=== PATIENT | male | born 1960 | race Caucasian/White ===

== ENCOUNTER 2017-04-19 07:12 | Inpatient (IN) | payer OTHER ==
[2017-04-19] VITALS (22 sets, daily range): BP systolic 87–160; BP diastolic 51–103; PULSE 54–70; RESP 15–20; TEMP 97.7–98.2; O2SAT 97–99
[~2017-04-19] VITALS: Ht 167.6 cm; Wt 97.5 kg
[2017-04-19] MEDS ORDERED: NITROGLYCERIN 2% OINT 1 GM PACKET TOP ONE (07:30)
[2017-04-19] MEDS ORDERED: SODIUM CHLORIDE 0.9% FLUSH 10 ML FLUSH IVF PRN (07:30)
[2017-04-19] MEDS ORDERED: ASPIRIN 81 MG CHEW TAB PO ONE (07:30)
--- NOTE | 2017-04-19 07:34 | PD ---
HPI Chief Complaint: Chest Pain Time Seen by Provider: 07:22 Travel History International Travel<30 days: No Contact w/Intl Traveler<30days: No Traveled to known affect area: No History of Present Illness HPI 56-year-old male with history of perceived hypertension, tobacco use, presents today with points of intermittent chest pain since yesterday. The patient and his family state that he's had intermittent chest pain and shortness of breath since yesterday. There is no exertional component. The patient states it's worse when he lies flat. The patient has no previous cardiac history. He does have family history worse father had coronary artery disease however he lived to be in his 90s. PFSH Past Medical History Cardiovascular Problems: Yes (HTN) Social History Tobacco Use: Yes Allergies-Medications (Allergen,Severity, Reaction): Coded Allergies: No Known Allergies (Unverified , 04/19/17) Reported Meds & Prescriptions Reported Meds & Active Scripts Active No Active Prescriptions or Reported Medications Review of Systems Except as stated in HPI: all other systems reviewed are Neg General / Constitutional: No: Fever, Chills HENT: No: Headaches, Lightheadedness Cardiovascular: Positive: Chest Pain or Discomfort, No: Palpitations, Irregular Rhythm Respiratory: Positive: Shortness of Breath, No: Cough Gastrointestinal: No: Nausea, Vomiting, Abdominal Pain Musculoskeletal: Positive: Pain (chest pain radiates from his left side of his chest to his back.), No: Weakness Neurologic: No: Weakness, Dizziness, Headache Physical Exam Narrative GENERAL: Well-developed well-nourished male in no acute respiratory distress. SKIN: Focused skin assessment warm/dry. HEAD: Atraumatic. Normocephalic. EYES: Pupils equal and round. No scleral icterus. No injection or drainage. ENT: No nasal bleeding or discharge. Mucous membranes pink and moist. NECK: Trachea midline. No JVD. Supple. CARDIOVASCULAR: Regular rate and rhythm. No murmur appreciated. RESPIRATORY: No accessory muscle use. Clear to auscultation. Breath sounds equal bilaterally. No Rales or rhonchi. GASTROINTESTINAL: Abdomen soft, non-tender, nondistended. Hepatic and splenic margins not palpable. MUSCULOSKELETAL: No obvious deformities. No clubbing. No cyanosis. No edema. NEUROLOGICAL: Awake and alert. No obvious cranial nerve deficits. Motor grossly within normal limits. Normal speech. Data Data Last Documented VS Vital Signs Date Time Temp Pulse Resp B/P (MAP) Pulse Ox O2 Delivery O2 Flow Rate FiO2 04/19/17 07:34 65 115/69 (84) 04/19/17 07:20 97.7 20 98 04/19/17 07:15 Nasal Cannula 2.00 Orders Orders Basic Metabolic Panel (Bmp) (04/19/17 07:29) Ckmb (Isoenzyme) Profile (04/19/17 07:29) Complete Blood Count With Diff (04/19/17:29) Magnesium (Mg) (04/19/17 07:29) Prothrombin Time / Inr (Pt) (04/19/17 07:29) Act Partial Throm Time (Ptt) (04/19/17 07:29) Troponin I (04/19/17 07:29) Chest, Single Ap (04/19/17 07:29) Ecg Monitoring (04/19/17 07:29) Bilateral Bp Monitoring (04/19/17 07:29) Iv Access Insert/Monitor (04/19/17 07:29) Oximetry (04/19/17 07:29) Oxygen Administration (04/19/17 07:29) Aspirin Chew (Aspirin Chew) (04/19/17 07:30) Nitroglycerin 2% Oint (Nitroglycerin 2% (04/19/17 07:30) Sodium Chloride 0.9% Flush (Ns Flush) (04/19/17 07:30) B-Type Natriuretic Peptide (04/19/17 07:34) CKMB (04/19/17 07:30) CKMB% (04/19/17 07:30) Cta Chest W Iv Contrast W 3d (04/19/17 08:24) Iohexol 350 Inj (Omnipaque 350 Inj) (04/19/17 09:16) Admit Order (Ed Use Only) (04/19/17 09:49) Labs Laboratory Tests Test 04/19/17 07:30 White Blood Count 13.1 TH/MM3 Red Blood Count 5.05 MIL/MM3 Hemoglobin 15.7 GM/DL Hematocrit 46.7 % Mean Corpuscular Volume 92.4 FL Mean Corpuscular Hemoglobin 31.1 PG Mean Corpuscular Hemoglobin Concent 33.6 % Red Cell Distribution Width 13.1 % Platelet Count 323 TH/MM3 Mean Platelet Volume 9.1 FL Neutrophils (%) (Auto) 83.0 % Lymphocytes (%) (Auto) 12.2 % Monocytes (%) (Auto) 3.2 % Eosinophils (%) (Auto) 1.1 % Basophils (%) (Auto) 0.5 % Neutrophils # (Auto) 10.8 TH/MM3 Lymphocytes # (Auto) 1.6 TH/MM3 Monocytes # (Auto) 0.4 TH/MM3 Eosinophils # (Auto) 0.1 TH/MM3 Basophils # (Auto) 0.1 TH/MM3 CBC Comment DIFF FINAL Differential Comment Prothrombin Time 11.2 SEC Prothromb Time International Ratio 1.0 RATIO Activated Partial Thromboplast Time 32.4 SEC Blood Urea Nitrogen 15 MG/DL Creatinine 0.90 MG/DL Random Glucose 118 MG/DL Calcium Level 8.7 MG/DL Magnesium Level 2.1 MG/DL Sodium Level 138 MEQ/L Potassium Level 4.2 MEQ/L Chloride Level 106 MEQ/L Carbon Dioxide Level 24.6 MEQ/L Anion Gap 7 MEQ/L Estimat Glomerular Filtration Rate 87 ML/MIN Total Creatine Kinase 188 U/L Creatine Kinase MB 1.5 NG/ML Troponin I LESS THAN 0.02 NG/ML B-Type Natriuretic Peptide 20 PG/ML MDM Medical Decision Making Medical Screen Exam Complete: Yes Emergency Medical Condition: Yes Differential Diagnosis Musculoskeletal pain versus ACS versus pneumonia versus CHF Narrative Course 56-year-old male with a history of perceived hypertension, tobacco use, who presents today with complaints of intermittent chest pain times several days. The patient's EKG and cardiac enzymes are normal without acute findings. Patient had pain that radiated to his back and there is questionable widening of his mediastinum. CT angiogram of the thoracic aorta was also ordered which shows no evidence of acute findings. The patient be placed in the chest pain center. I discussed with both the patient his son and of the protocol and they're amenable. Diagnosis Primary Impression: Chest pain Additional Impressions: reported hypertension without clinical diagnosis Tobacco use Admitting Information Admitting Physician Requests: Observation Scripts No Active Prescriptions or Reported Meds Haroldo Ennis MD Apr 19, 2017 07:34
[2017-04-19 07:57] LABS: AUTOMATED NEUTROPHIL # 10.8 TH/MM3 (1.8-7.7); BASOPHIL # 0.1 TH/MM3 (0-0.2); BASOPHIL % 0.5 % (0.0-2.0); EOSINOPHIL # 0.1 TH/MM3 (0-0.4); EOSINOPHIL % 1.1 % (0.0-4.0); HEMATOCRIT 46.7 % (39.0-51.0); HEMO FLAGS DIFF FINAL; LYMPH % 12.2 % (9.0-44.0); LYMPHOCYTE # 1.6 TH/MM3 (1.0-4.8); MEAN CELL VOLUME 92.4 FL (80.0-100.0); MEAN CORPUSCULAR HEMOGLOBIN 31.1 PG (27.0-34.0); MEAN CORPUSCULAR HGB CONC 33.6 % (32.0-36.0); MONO % 3.2 % (0.0-8.0); PLATELET COUNT 323 TH/MM3 (150-450); RED BLOOD COUNT 5.05 MIL/MM3 (4.50-5.90); RED CELL DISTRIBUTION WIDTH 13.1 % (11.6-17.2); WHITE BLOOD COUNT 13.1 TH/MM3 (4.0-11.0)
[2017-04-19 08:10] LABS: APTT (PATIENT) 32.4 SEC (24.3-30.1); PROTHROMBIN TIME - PATIENT 11.2 SEC (9.8-11.6)
[2017-04-19 08:14] LABS: ANION GAP 7 MEQ/L (5-15); BICARBONATE 24.6 MEQ/L (21.0-32.0); BLOOD UREA NITROGEN 15 MG/DL (7-18); CHLORIDE 106 MEQ/L (98-107); CREATINE KINASE 188 U/L (39-308); GLOMERULAR FILTRATION RATE 87 ML/MIN (>89); MAGNESIUM 2.1 MG/DL (1.5-2.5); POTASSIUM 4.2 MEQ/L (3.5-5.1); SODIUM (NA) 138 MEQ/L (136-145)
[2017-04-19 08:26] LABS: CKMB 1.5 NG/ML (0.5-3.6)
--- NOTE | 2017-04-19 08:33 | RADRPT ---
EXAM DATE/TIME: 04/19/2017 08:08 [facility] COMPARISON: No previous studies available for comparison. INDICATIONS : Chest Pain MEDICAL HISTORY : None. SURGICAL HISTORY : ENCOUNTER: Initial ACUITY: 1 day PAIN SCORE: 6/10 LOCATION: Bilateral chest FINDINGS: A single view of the chest demonstrates the lungs to be symmetrically aerated without evidence of mas s, infiltrate or effusion. The heart size is mildly prominent.. Osseous structures are intact. CONCLUSION: No acute disease. Compensated cardiomegaly. Franklin Munoz MD on April 19, 2017 at 8:31 Board Certified Radiologist. This report was verified electronically.
[2017-04-19] MEDS ORDERED: IOHEXOL 350 MG/ML 10 ML VIAL (for RAD DIAG) IVCONTRAST ONE (09:16)
--- NOTE | 2017-04-19 09:37 | RADRPT ---
EXAM DATE/TIME: 04/19/2017 08:59 [facility] COMPARISON: No previous studies available for comparison. INDICATIONS : Substernal chest pain; evaluate for aortic dissection. IV CONTRAST: 84 cc Omnipaque 350 (iohexol) IV RADIATION DOSE: 16.73 CTDIvol (mGy) MEDICAL HISTORY : Hypertension. SURGICAL HISTORY : None. ENCOUNTER: Initial ACUITY: 1 day PAIN SCALE: 5/10 LOCATION: chest TECHNIQUE: Volumetric scanning of the chest was performed using a pulmonary embolism protocol MIP images were re constructed. Using automated exposure control and adjustment of the mA and/or kV according to patien t size, radiation dose was kept as low as reasonably achievable to obtain optimal diagnostic quality images. DICOM format image data is available electronically for review and comparison. Follow-up recommendations for detected pulmonary nodules are based at a minimum on nodule size and pa tient risk factors according to Fleischner Society Guidelines. FINDINGS: PULMONARY ARTERIES: No filling defects are seen in the pulmonary arteries through the segmental level. AORTA: There mild atherosclerotic changes in the thoracic aorta. There is no evidence of aneurysmal dilatati on or aortic dissection. There is a three-vessel arch. LUNGS: There is no consolidation or pneumothorax . No concerning pulmonary nodule is visualized. PLEURAE: There is no pleural thickening or pleural effusion. MEDIASTINUM: There is good visualization of the great vessels of the middle mediastinum. No evidence of mediastin al or hilar adenopathy/mass. MUSCULOSKELETAL: Within normal limits for patient age. MISCELLANEOUS: The visualized upper abdominal organs demonstrate no acute abnormality. CONCLUSION: 1. No evidence of aortic dissection or aneurysmal dilatation. 2. Mild atherosclerotic changes throughout the thoracic aorta. 3. No acute intrathoracic disease. Franklin Munoz MD on April 19, 2017 at 9:32 Board Certified Radiologist. This report was verified electronically.
[2017-04-19] MEDS ORDERED: SODIUM CHLOR 0.9% 1000 ML INJ 1,000 ML IV ONE (10:42)
[2017-04-19] MEDS ORDERED: SODIUM CHLORIDE 0.9% FLUSH 5 ML FLUSH IVF PRN (10:45)
[2017-04-19] MEDS ORDERED: ACETAMINOPHEN 500 MG CPLT PO PRN (10:45)
[2017-04-19] MEDS ORDERED: ONDANSETRON HCL 4 MG/2 ML VIAL IV PUSH PRN (10:45)
[2017-04-19] MEDS ORDERED: ACETAMINOPHEN/HYDROcodone 325 MG/7.5 MG TAB PO PRN (10:45)
[2017-04-19 11:44] LABS: CREATINE KINASE 155 U/L (39-308)
[2017-04-19 12:08] LABS: CKMB 2.1 NG/ML (0.5-3.6)
--- NOTE | 2017-04-19 12:27 | HHI.HP ---
HPI Primary Care Physician Unknown Chief Complaint Chest pain History of Present Illness This is a 56-year-old [place]-speaking male that presents to ED via private vehicle with a clinical chest discomfort. Translation through the [facility] system was offered the patient declined and is requesting that his son translate for him. He states that he was awoken at 2:00 in the morning with a central chest tightness that radiated into his left arm with some left arm tingling. States it was very severe. He was short of breath with it. Lasted 1 hour. No nausea or diaphoresis. Nothing seemed to worsen or improve when he had it. Thin short time later reoccurred also lasting hour. Similar characteristics. Then a third tablet when it reoccurred he also checked his blood pressure and found to be 187/107 which concerned her more and at that point decided to come to ED for evaluation. Third episode also lasted about an hour. Also shortness of breath. Rating into left arm with some left arm numbness and tingling. No nausea or diaphoresis. Denies any recent illness. Denies fevers or chills. Denies abdominal pain. Denies back pain. Cannot recall prior cardiac workup. States he has history of hypertension but was never prescribed medication for. His has hypertension and he took 100 mg of atenolol from her this morning. Currently free of chest discomfort. Review of Systems General: Patient denies fevers, chills recent, and recent travel HEENT: Patient denies headache, sore throat, difficulty swallowing. Cardiovascular: Has the chest discomfort as mentioned above. Denies sensation of heart beating rapidly or irregularly. No syncope. Denies diaphoresis. Respiratory: He was short of breath. Denies inspirational chest discomfort. Denies coughing wheezing or hemoptysis. GI: Patient denies nausea, vomiting, diarrhea, abdominal pain, bloody stools. Musculoskeletal: Patient denies joint pain or edema. Denies calf pain or edema. Neurovascular: Patient denies numbness, tingling, weakness in extremities. Denies headache. Endocrine: Denies polyuria and polydipsia. Hematologic: Denies easy bruising. Skin: Denies rash or itching. Past Family Social History Allergies: Coded Allergies: No Known Allergies (Unverified , 04/19/17) Past Surgical History Noncontributory. Reported Medications Reported Meds & Active Scripts Active No Active Prescriptions or Reported Medications Active Ordered Medications Current Medications Medications (Trade) Dose Ordered Sig/William Route Start Time Stop Time Status Last Admin (NS Flush) 2 ml UNSCH PRN IVF 04/19/17 10:45 (NS Flush) 2 ml BID IVF 04/19/17 21:00 (Tylenol) 500 mg Q4H PRN PO 04/19/17 10:45 ([place] 7.5-325 Mg) 1 tab Q4H PRN PO 04/19/17 10:45 (Zofran Inj) 4 mg Q6H PRN IV PUSH 04/19/17 10:45 (Aspirin) 325 mg DAILY PO 04/20/17 09:00 Family History States that there is late onset CAD. Father diagnosed with CAD age 82 and lived to be 89. Social History Patient has smoked one pack of cigarettes daily for 40 years. Has on average a couple beers a month. Denies illicit drugs. He has a [employer] company. Physical Exam Vital Signs Vital Signs Date Time Temp Pulse Resp B/P (MAP) Pulse Ox O2 Delivery O2 Flow Rate FiO2 04/19/17 11:00 54 18 95/59 (71) 99 Nasal Cannula 2.00 04/19/17 10:45 58 87/51 (63) 04/19/17 10:30 55 90/54 (66) 04/19/17 10:00 57 18 105/55 (72) 97 Nasal Cannula 2.00 04/19/17 07:34 65 115/69 (84) 04/19/17 07:20 97.7 66 20 126/80 (95) 98 04/19/17 07:15 98 Nasal Cannula 2.00 04/19/17 07:15 98 Nasal Cannula 2.00 04/19/17 07:13 97.7 70 15 156/93 (114) 98 04/19/17 07:13 64 160/103 (122) Physical Exam GENERAL: This is a well-nourished, well-developed patient, in no apparent distress. Patient speaks in clear complete sentences. Patient is pleasant. His is at the bedside. His son initially translated over the phone at the request of the patient but has since arrived in the ED room. HEENT: Head is atraumatic and normocephalic. Neck is supple without lymphadenopathy and trachea is midline. No JVD or carotid bruits. CARDIOVASCULAR: Regular rate and rhythm without murmurs, gallops, or rubs. RESPIRATORY: Clear to auscultation. Breath sounds equal bilaterally. No wheezes , rales, or rhonchi. Chest wall is nontender. No use of accessory muscles. GASTROINTESTINAL: Abdomen is nontender, nondistended. Abdomen soft. No obvious pulsatile mass or bruit. No CVA tenderness. Strong femoral pulses bilaterally. Normal bowel sounds in all quadrants. MUSCULOSKELETAL: Patient is moving upper and lower extremities freely. No calf tenderness or edema, no Homans sign. Strong pulses in upper and lower extremities. NEUROLOGICAL: Patient is alert and oriented. Cranial nerves 2-12 are grossly intact. No focal deficits and speech is clear. SKIN: No rash and turgor is normal. Laboratory Laboratory Tests Test 04/19/17 07:30 04/19/17 11:00 White Blood Count 13.1 Red Blood Count 5.05 Hemoglobin 15.7 Hematocrit 46.7 Mean Corpuscular Volume 92.4 Mean Corpuscular Hemoglobin 31.1 Mean Corpuscular Hemoglobin Concent 33.6 Red Cell Distribution Width 13.1 Platelet Count 323 Mean Platelet Volume 9.1 Neutrophils (%) (Auto) 83.0 Lymphocytes (%) (Auto) 12.2 Monocytes (%) (Auto) 3.2 Eosinophils (%) (Auto) 1.1 Basophils (%) (Auto) 0.5 Neutrophils # (Auto) 10.8 Lymphocytes # (Auto) 1.6 Monocytes # (Auto) 0.4 Eosinophils # (Auto) 0.1 Basophils # (Auto) 0.1 CBC Comment DIFF FINAL Differential Comment Prothrombin Time 11.2 Prothromb Time International Ratio 1.0 Activated Partial Thromboplast Time 32.4 Blood Urea Nitrogen 15 Creatinine 0.90 Random Glucose 118 Calcium Level 8.7 Magnesium Level 2.1 Sodium Level 138 Potassium Level 4.2 Chloride Level 106 Carbon Dioxide Level 24.6 Anion Gap 7 Estimat Glomerular Filtration Rate 87 Total Creatine Kinase 188 155 Creatine Kinase MB 1.5 2.1 Troponin I LESS THAN 0.02 0.14 B-Type Natriuretic Peptide 20 Result Diagram: 04/19/1772904/19/17729 Imaging Last 48 hours Impressions Chest/Thorax CTA 04/19/17823 Signed Impressions: Service Date/Time: Wednesday, April 19, 2017 08:59 - CONCLUSION: 1. No evidence of aortic dissection or aneurysmal dilatation. 2. Mild atherosclerotic changes throughout the thoracic aorta. 3. No acute intrathoracic disease. Franklin Munoz MD Chest X-Ray 04/19/17 0729 Signed Impressions: Service Date/Time: Friday, April 19, 2017 08:08 - CONCLUSION: No acute disease. Compensated cardiomegaly. Franklin Munoz MD Course First 2 EKGs have sinus rhythm without significant ST segment depressions or elevations. Caprini VTE Risk Assessment Caprini VTE Risk Assessment: No/Low Risk (score <= 1) Caprini Risk Assessment Model Point Value = 1 Point Value = 2 Point Value = 3 Point Value = 5 Age 41-60 Minor surgery BMI > 25 kg/m2 Swollen legs Varicose veins or History of unexplained or recurrent spontaneous Oral contraceptives or hormone replacement Sepsis (< 1 month) Serious lung disease, including pneumonia (< 1 month) Abnormal pulmonary function Acute myocardial infarction Congestive heart failure (< 1 month) History of inflammatory bowel disease Medical patient at bed rest Age 61-74 Arthroscopic surgery Major open surgery (> 45 min) Laparoscopic surgery (> 45 min) Malignancy Confined to bed (> 72 hours) Immobilizing plaster cast Central venous access Age >= 75 History of VTE Family history of VTE Factor V Leiden Prothrombin [id number] Lupus anticoagulant Anticardiolipin antibodies Elevated serum homocysteine Heparin-induced thrombocytopenia Other congenital or acquired thrombophilia Stroke (< 1 month) Elective arthroplasty Hip, pelvis, or leg fracture Acute spinal cord injury (< 1 month) Prophylaxis Regimen Total Risk Factor Score Risk Level Prophylaxis Regimen 0-1 Low Early ambulation 2 Moderate Order ONE of the following: *Sequential Compression Device (SCD) *Heparin 5000 units SQ BID 3-4 Higher Order ONE of the following medications: *Heparin 5000 units SQ TID *Enoxaparin/Lovenox 40 mg SQ daily (WT < 150 kg, CrCl > 30 mL/min) *Enoxaparin/Lovenox 30 mg SQ daily (WT < 150 kg, CrCl > 10-29 mL/min) *Enoxaparin/Lovenox 30 mg SQ BID (WT < 150 kg, CrCl > 30 mL/min) AND/OR *Sequential Compression Device (SCD) 5 or more Highest Order ONE of the following medications: *Heparin 5000 units SQ TID (Preferred with Epidurals) *Enoxaparin/Lovenox 40 mg SQ daily (WT < 150 kg, CrCl > 30 mL/min) *Enoxaparin/Lovenox 30 mg SQ daily (WT < 150 kg, CrCl > 10-29 mL/min) *Enoxaparin/Lovenox 30 mg SQ BID (WT < 150 kg, CrCl > 30 mL/min) AND *Sequential Compression Device (SCD) Assessment and Plan Assessment and Plan * Non-STEMI: Patient's second troponin elevated to 0.14. Patient was seen by Dr. Rodriguez of cardiology and the chest pain center. Have also discussed this patient with Dr. Jayesh Macedo whom his dry paste supervisor control systems eng. He will evaluate the patient shortly. Requesting heparin drip. Will start statin. Patient had Nitrol ointment on his chest during examination and was found to be hypotensive. This was removed. IV hydration has begun and blood pressure has improved to 102 systolic. We'll hold putting ointment on his chest at this time until blood pressure improved some more. Also secondary to this we'll hold beta rod but likely these both will be restarted as his blood pressure returns to normal. Further cardiac evaluation to be determined by Dr. Jayesh Macedo. Patient will be admitted to [facility] as well. * Hypertension: Patient states he has been hypertensive for some time but never prescribed medication. He or his 's atenolol and had Nitrol ointment and became hypotensive in the ED. He likely will need medication started once his blood pressure improves. * Tobacco abuse: Patient has been counseled on the importance of smoking cessation. Patient is agreeable to this plan. Gildardo Hairston Apr 19, 2017 12:27
[2017-04-19] MEDS ORDERED: SODIUM CHLOR 0.9% 1000 ML INJ 1,000 ML IV SCH (12:30)
[2017-04-19] MEDS ORDERED: HEPARIN SODIUM - IV 10,000 UNITS/10 ML VIAL IV ONE (12:45)
[2017-04-19] MEDS ORDERED: HEPARIN-D5W 25,000 U/250 ML 250 ML IV ONE (12:45)
[2017-04-19] MEDS: ATORVASTATIN 20 MG TAB PO SCH (13:27)
--- NOTE | 2017-04-19 14:27 | ECHRPT ---
Indication: Chest Pain CONCLUSIONS Normal left ventricular size. Wall thickness is normal. No regional wall motion abnormalities are present. Trace mitral valve regurgitation. Aortic valve sclerosis is present. There is trace tricuspid valve regurgitation. The estimated pulmonary arterial pressure is 34 mmHg. The pulmonary valve is not well visualized. BP: / HR: Rhythm: Sinus MEASUREMENTS (Male / Female) Normal Values Technical Quality:Good 2D ECHO LV Diastolic Diameter PLAX 3.8 cm 4.2 - 5.9 / 3.9 - 5.3 cm LV Systolic Diameter PLAX 2.6 cm IVS Diastolic Thickness 1.1 cm 0.6 - 1.0 / 0.6 - 0.9 cm LVPW Diastolic Thickness 1.1 cm 0.6 - 1.0 / 0.6 - 0.9 cm LV Relative Wall Thickness 0.6 RV Internal Dim ED PLAX 2.6 cm LVOT Diameter 1.9 cm LA Systolic Diameter LX 3.3 cm 3.0 - 4.0 / 2.7 - 3.8 cm LV Ejection Fraction MOD 4C 60.5 % LV Ejection Fraction 4C AL 61.4 % M-MODE Aortic Root Diameter MM 2.9 cm LA Systolic Diameter MM 3.5 cm LA Ao Ratio MM 1.2 AV Cusp Separation MM 1.9 cm DOPPLER AV Peak Velocity 163.0 cm/s AV Peak Gradient 10.6 mmHg LVOT Peak Velocity 116.0 cm/s LVOT Peak Gradient 5.4 mmHg AV Area Cont Eq pk 2.0 cm MV Area PHT 3.4 cm Mitral E Point Velocity 84.4 cm/s Mitral A Point Velocity 66.6 cm/s Mitral E to A Ratio 1.3 LV E' Lateral Velocity 11.0 cm/s Mitral E to LV E' Lateral Ratio 7.7 LV E' Septal Velocity 8.5 cm/s Mitral E to LV E' Septal Ratio 10.0 TR Peak Velocity 248.0 cm/s TR Peak Gradient 24.6 mmHg Right Atrial Pressure 10.0 mmHg Pulmonary Artery Systolic Pressu 34.6 mmHg Right Ventricular Systolic Press 34.6 mmHg PV Peak Velocity 97.7 cm/s PV Peak Gradient 3.8 mmHg FINDINGS LEFT VENTRICLE The left ventricular systolic function is normal with an estimated ejection fraction in the range of 60-65%. Normal left ventricular size. Wall thickness is normal. No regional wall motion abnormalities are present. RIGHT VENTRICLE Normal right ventricular size and systolic function. LEFT ATRIUM The left atrial size is normal. RIGHT ATRIUM The right atrial size is normal. ATRIAL SEPTUM Normal atrial septal thickness without atrial level shunting by limited color doppler interrogation. AORTA The aortic root and proximal ascending aorta are normal in size on limited imaging. MITRAL VALVE Trace mitral valve regurgitation. Structurally normal mitral valve. AORTIC VALVE Trileaflet aortic valve. No aortic valve stenosis or regurgitation. Aortic valve sclerosis is presen t. TRICUSPID VALVE Structurally normal tricuspid valve. There is trace tricuspid valve regurgitation. The estimated pulmonary arterial pressure is 34 mmHg. PULMONARY VALVE The pulmonary valve is not well visualized. No pulmonary valve regurgitation or stenosis. VESSELS The inferior vena cava is normal in size. PERICARDIUM No pericardial effusion. Jayesh Macedo MD (Electronically Signed) Final Date:19 April 2017 14:25
[2017-04-19 14:48] LABS: CREATINE KINASE 141 U/L (39-308)
--- NOTE | 2017-04-19 15:02 | PD.CONS ---
HPI Consult Requested By Reason for Consult Acute coronary syndrome Primary Care Physician Unknown History of Present Illness The patient is a pleasant 56-year-old male who I'm seeing for acute coronary syndrome. 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 The patient has been active and has absolutely no cardiac history. At approximately 3 AM he was awoken with severe substernal pressure radiating to his left arm associated with shortness of breath. This lasted for an hour and resolved. It occurred 2 more times. At one point he took his blood pressure which was high and took 100 mg of atenolol from his . The maximum duration of the chest pain was one hour. He is symptom-free now. EKG in the emergency room shown sinus bradycardia and sinus rhythm with no acute changes. Review of Systems Consitutional: DENIES: Fatigue Eyes: DENIES: Amaurosis Fugax Respiratory: COMPLAINS OF: Shortness of breath, DENIES: Cough, Snoring, Wheezing Cardiovascular: COMPLAINS OF: Chest pain Neurologic: DENIES: Tingling or numbness, Memory problems, Poor Balance Musculoskeletal: DENIES: Muscle pain Psychiatric: DENIES: Anxiety, Depression Past Family Social History Allergies: Coded Allergies: No Known Allergies (Unverified , 04/19/17) Past Medical History Hypertension Osteoarthritis Reported Medications Reported Meds & Active Scripts Active No Active Prescriptions or Reported Medications Active Ordered Medications Current Medications Medications (Trade) Dose Ordered Sig/William Route Start Time Stop Time Status Last Admin (NS Flush) 2 ml UNSCH PRN IVF 04/19/17 10:45 (NS Flush) 2 ml BID IVF 04/19/17 21:00 (Tylenol) 500 mg Q4H PRN PO 04/19/17 10:45 ([place] 7.5-325 Mg) 1 tab Q4H PRN PO 04/19/17 10:45 (Zofran Inj) 4 mg Q6H PRN IV PUSH 04/19/17 10:45 (Aspirin) 325 mg DAILY PO 04/20/17 09:00 Sodium Chloride 1,000 ml @ 125 mls/hr Q8H IV 04/19/17 12:30 04/19/17 20:29 04/19/17 13:49 (Lipitor) 20 mg DAILY PO 04/19/17 12:30 04/19/17 13:27 Heparin Sodium/ Dextrose 250 ml @ 10 mls/hr TITRATE ONCE IV 04/19/17 12:45 04/20/17 13:44 04/19/17 13:43 Family History Remarkable for a brother with heart disease at 58 Social History The patient is . He is originally [place] and speaks predominantly Monegasque. His son is translating for him and his is in attendance. He does smoke and occasionally drinks. Physical Exam Vital Signs Vital Signs Date Time Temp Pulse Resp B/P (MAP) Pulse Ox O2 Delivery O2 Flow Rate FiO2 04/19/17 13:00 55 18 113/78 (90) 99 Nasal Cannula 2.00 04/19/17 12:30 58 100/59 (73) 04/19/17 12:00 60 20 102/63 (76) 99 Nasal Cannula 2.00 04/19/17 11:30 58 101/56 (71) 04/19/17 11:00 54 18 95/59 (71) 99 Nasal Cannula 2.00 04/19/17 10:45 58 87/51 (63) 04/19/17 10:30 55 90/54 (66) 04/19/17 10:00 57 18 105/55 (72) 97 Nasal Cannula 2.00 04/19/17 07:34 65 115/69 (84) 04/19/17 07:20 97.7 66 20 126/80 (95) 98 04/19/17 07:15 98 Nasal Cannula 2.00 04/19/17 07:15 98 Nasal Cannula 2.00 04/19/17 07:13 97.7 70 15 156/93 (114) 98 04/19/17 07:13 64 160/103 (122) Physical Exam CONSTITUTIONAL: A overweight,well-developed, well-nourished patient in no apparent distress. EYES: Conjunctiva normal. Sclera nonicteric. Eyelids normal. No xanthelasma. HEENT: Oral mucosa normal without pallor or cyanosis. NECK: JVD less than or equal to 5 cm of water. RESPIRATORY: Breathing is unlabored without accessory muscle use. Normal breath sounds. No wheezes, rales or rubs present. CARDIOVASCULAR: Normal point of maximal impulse. No cardiac thrill present. Regular rate and rhythm. No murmurs, gallops, rubs or clicks present. PULSES: Carotid arteries: Normal pulses bilaterally without bruits. Palmar arteries: Radial pulses 2+ bilaterally Abdominal aorta: Aortic pulses normal without bruits or enlargement. Femoral arteries: 2+ bilaterally. No bruits present. Pedal pulses: 1-2+ bilaterally PERIPHERAL CIRCULATION: No cyanosis, clubbing, edema or varicosities present. GASTROINTESTINAL: Normal bowel sounds. Nontender without rigidity or guarding. No masses present. No hepatomegaly. Liver is nontender to palpation and spleen is nonpalpable. Digital rectal exam-not indicated for cardiovascular exam. MUSCULOSKELETAL: No kyphosis or scoliosis present. The patient is not ambulated. Able to undergo rehabilitation. SKIN: Skin turgor is normal. No rashes. NEUROLOGIC: Grossly oriented to person, place and time. Normal mood and appropriate affect. Laboratory Laboratory Tests Test 04/19/17 07:30 04/19/17 11:00 04/19/17 14:00 White Blood Count 13.1 Red Blood Count 5.05 Hemoglobin 15.7 Hematocrit 46.7 Mean Corpuscular Volume 92.4 Mean Corpuscular Hemoglobin 31.1 Mean Corpuscular Hemoglobin Concent 33.6 Red Cell Distribution Width 13.1 Platelet Count 323 Mean Platelet Volume 9.1 Neutrophils (%) (Auto) 83.0 Lymphocytes (%) (Auto) 12.2 Monocytes (%) (Auto) 3.2 Eosinophils (%) (Auto) 1.1 Basophils (%) (Auto) 0.5 Neutrophils # (Auto) 10.8 Lymphocytes # (Auto) 1.6 Monocytes # (Auto) 0.4 Eosinophils # (Auto) 0.1 Basophils # (Auto) 0.1 CBC Comment DIFF FINAL Differential Comment Prothrombin Time 11.2 Prothromb Time International Ratio 1.0 Activated Partial Thromboplast Time 32.4 Blood Urea Nitrogen 15 Creatinine 0.90 Random Glucose 118 Calcium Level 8.7 Magnesium Level 2.1 Sodium Level 138 Potassium Level 4.2 Chloride Level 106 Carbon Dioxide Level 24.6 Anion Gap 7 Estimat Glomerular Filtration Rate 87 Total Creatine Kinase 188 155 141 Creatine Kinase MB 1.5 2.1 Troponin I LESS THAN 0.02 0.14 0.54 B-Type Natriuretic Peptide 20 Result Diagram: 04/19/1772904/19/17729 Imaging Last 48 hours Impressions Chest/Thorax CTA 04/19/17 0842 Signed Impressions: Service Date/Time: Wednesday, April 19, 2017 08:59 - CONCLUSION: 1. No evidence of aortic dissection or aneurysmal dilatation. 2. Mild atherosclerotic changes throughout the thoracic aorta. 3. No acute intrathoracic disease. Franklin Munoz MD Chest X-Ray 04/19/17 0729 Signed Impressions: Service Date/Time: Wednesday, April 19, 2017 08:08 - CONCLUSION: No acute disease. Compensated cardiomegaly. Franklin Munoz MD Assessment and Plan Assessment and Plan Problems: Acute coronary syndrome Initial hypotension and bradycardia most likely from taking his say atenolol Hypertension Hyperlipidemia Obesity Tobacco abuse Recommendations: He has already been started on heparin. Obtain liver functions and lipid panel. Statins and aspirin We'll start beta blockers later. Low-cholesterol/salt diet with weight loss. Tobacco abstinence Bed rest. Catheterization with possible intervention. The risks/benefits/alternatives were explained and informed consent obtained. He and his family understand Dr. Donovan, my partner, will be doing this. We will plan on this being done Friday if he is stable or sooner if he becomes unstable. All questions were answered. Jayesh Macedo MD Apr 19, 2017 15:02
[2017-04-19 15:04] LABS: CKMB 2.7 NG/ML (0.5-3.6)
[2017-04-19] MEDS ORDERED: SODIUM CHLORIDE 0.9% FLUSH 10 ML FLUSH IV FLUSH PRN (15:45)
[2017-04-19 16:02] LABS: HDL CHOLESTEROL 39.8 MG/DL (40.0-60.0); INDIRECT BILIRUBIN 0.2 MG/DL (0.0-0.8); TOTAL BILIRUBIN ADULT 0.3 MG/DL (0.2-1.0)
--- NOTE | 2017-04-19 18:51 | EKG ---
Date Performed: 04/19/2017 Time Performed: 07:26:07 PTAGE: 56 years EKG: Sinus rhythm NORMAL ECG NO PREVIOUS TRACING DOCTOR: Jayesh Macedo Interpretating Date/Time 04/19/2017 18:49:37
--- NOTE | 2017-04-19 19:45 | HHI.HP ---
HPI Service [facility] Primary Care Physician Unknown Admission Diagnosis chest pain, tobacco use, Diagnoses: Chief Complaint: Chest pain Travel History International Travel<30 Days: No Contact w/Intl Traveler <30 Da: No Traveled to Known Affected Are: No History of Present Illness This is a 56-year-old male who presented complaining of chest pain. The patient has been active and has no chronic history. Patient reports that approximately 3 AM he was awoken with severe substernal pressure radiating to both shoulders and associated with sob. This lasted for proximal and hour and then resolved. The pain came back for approximately 2 more times. The patient states that his blood pressure was elevated so he took 100 mg of atenolol from his medication. The patient is symptom-free now. EKG in emergency department showed sinus bradycardia and sinus rhythm with no acute changes. The patient was seen in emergency department and he was found the patient had elevated cardiac enzymes that were trending up. Review of Systems As per history of present illness, other systems reviewed by me and negative Past Family Social History Past Medical History Hypertension Osteoarthritis Past Surgical History none Reported Medications Reported Meds & Active Scripts Active No Active Prescriptions or Reported Medications Allergies: Coded Allergies: No Known Allergies (Unverified , 04/19/17) Active Ordered Medications Current Medications Medications (Trade) Dose Ordered Sig/William Route Start Time Stop Time Status Last Admin (Tylenol) 500 mg Q4H PRN PO 04/19/17 10:45 ([place] 7.5-325 Mg) 1 tab Q4H PRN PO 04/19/17 10:45 (Zofran Inj) 4 mg Q6H PRN IV PUSH 04/19/17 10:45 (Aspirin) 325 mg DAILY PO 04/20/17 09:00 Sodium Chloride 1,000 ml @ 125 mls/hr Q8H IV 04/19/17 12:30 04/19/17 20:29 04/19/17 13:49 (Lipitor) 20 mg DAILY PO 04/19/17 12:30 04/19/17 13:27 Heparin Sodium/ Dextrose 250 ml @ 10 mls/hr TITRATE ONCE IV 04/19/17 12:45 04/20/17 13:44 04/19/17 13:43 (Lopressor) 25 mg Q12HR PO 04/19/17 21:00 (NS Flush) 2 ml BID IV FLUSH 04/19/17 21:00 (NS Flush) 2 ml UNSCH PRN IV FLUSH 04/19/17 15:45 Family History Remarkable for a brother with heart disease at age 58 Social History patient smokes 1 PPD for over 50 years occasional etoh denies illicit drug use Physical Exam Vital Signs Vital Signs Date Time Temp Pulse Resp B/P (MAP) Pulse Ox O2 Delivery O2 Flow Rate FiO2 04/19/17 16:00 60 18 108/66 (80) 98 Nasal Cannula 2.00 04/19/17 15:28 99 Nasal Cannula 2.00 04/19/17 13:00 55 18 113/78 (90) 99 Nasal Cannula 2.00 04/19/17 12:30 58 100/59 (73) 04/19/17 12:00 60 20 102/63 (76) 99 Nasal Cannula 2.00 04/19/17 11:30 58 101/56 (71) 04/19/17 11:00 54 18 95/59 (71) 99 Nasal Cannula 2.00 04/19/17 10:45 58 87/51 (63) 04/19/17 10:30 55 90/54 (66) 04/19/17 10:00 57 18 105/55 (72) 97 Nasal Cannula 2.00 04/19/17 07:34 65 115/69 (84) 04/19/17 07:20 97.7 66 20 126/80 (95) 98 04/19/17 07:15 98 Nasal Cannula 2.00 04/19/17 07:15 98 Nasal Cannula 2.00 04/19/17 07:13 97.7 70 15 156/93 (114) 98 04/19/17 07:13 64 160/103 (122) Physical Exam GENERAL: This is a well-nourished, well-developed patient, in no apparent distress. SKIN: No rashes, ecchymoses or lesions. Cool and dry. HEAD: Atraumatic. Normocephalic. No temporal or scalp tenderness. EYES: Pupils equal round and reactive. Extraocular motions intact. No scleral icterus. No injection or drainage. ENT: Nose without bleeding, purulent drainage or septal hematoma. Throat without erythema, tonsillar hypertrophy or exudate. Uvula midline. Airway patent. NECK: Trachea midline. No JVD or lymphadenopathy. Supple, nontender, no meningeal signs. CARDIOVASCULAR: Regular rate and rhythm without murmurs, gallops, or rubs. RESPIRATORY: Clear to auscultation. Breath sounds equal bilaterally. No wheezes , rales, or rhonchi. GASTROINTESTINAL: Abdomen soft, non-tender, nondistended. No hepato-splenomegaly , or palpable masses. No guarding. MUSCULOSKELETAL: Extremities without clubbing, cyanosis, or edema. No joint tenderness, effusion, or edema noted. No calf tenderness. Negative Homans sign bilaterally. NEUROLOGICAL: Awake and alert. Cranial nerves II through XII intact. Motor and sensory grossly within normal limits. Five out of 5 muscle strength in all muscle groups. Normal speech. Laboratory Laboratory Tests Test 04/19/17 07:30 04/19/17 11:00 04/19/17 14:00 White Blood Count 13.1 Red Blood Count 5.05 Hemoglobin 15.7 Hematocrit 46.7 Mean Corpuscular Volume 92.4 Mean Corpuscular Hemoglobin 31.1 Mean Corpuscular Hemoglobin Concent 33.6 Red Cell Distribution Width 13.1 Platelet Count 323 Mean Platelet Volume 9.1 Neutrophils (%) (Auto) 83.0 Lymphocytes (%) (Auto) 12.2 Monocytes (%) (Auto) 3.2 Eosinophils (%) (Auto) 1.1 Basophils (%) (Auto) 0.5 Neutrophils # (Auto) 10.8 Lymphocytes # (Auto) 1.6 Monocytes # (Auto) 0.4 Eosinophils # (Auto) 0.1 Basophils # (Auto) 0.1 CBC Comment DIFF FINAL Differential Comment Prothrombin Time 11.2 Prothromb Time International Ratio 1.0 Activated Partial Thromboplast Time 32.4 Blood Urea Nitrogen 15 Creatinine 0.90 Random Glucose 118 Calcium Level 8.7 Magnesium Level 2.1 Sodium Level 138 Potassium Level 4.2 Chloride Level 106 Carbon Dioxide Level 24.6 Anion Gap 7 Estimat Glomerular Filtration Rate 87 Total Bilirubin 0.3 Direct Bilirubin 0.1 Indirect Bilirubin 0.2 Aspartate Amino Transf (AST/SGOT) 27 Alanine Aminotransferase (ALT/SGPT) 42 Alkaline Phosphatase 80 Total Creatine Kinase 188 155 141 Creatine Kinase MB 1.5 2.1 2.7 Troponin I LESS THAN 0.02 0.14 0.54 B-Type Natriuretic Peptide 20 Total Protein 8.4 Albumin 4.2 Triglycerides Level 143 Cholesterol Level 182 LDL Cholesterol 114 HDL Cholesterol 39.8 Cholesterol/HDL Ratio 4.57 Result Diagram: 04/19/1772904/19/17729 Imaging Last Impressions Chest/Thorax CTA 04/19/17823 Signed Impressions: Service Date/Time: Wednesday, April 19, 2017 08:59 - CONCLUSION: 1. No evidence of aortic dissection or aneurysmal dilatation. 2. Mild atherosclerotic changes throughout the thoracic aorta. 3. No acute intrathoracic disease. Franklin Munoz MD Chest X-Ray 04/19/17728 Signed Impressions: Service Date/Time: Wednesday, April 19, 2017 08:08 - CONCLUSION: No acute disease. Compensated cardiomegaly. MD Justin Lewis VTE Risk Assessment Caprini VTE Risk Assessment: Mod/High Risk (score >= 2) Caprini Risk Assessment Model Point Value = 1 Point Value = 2 Point Value = 3 Point Value = 5 Age 41-60 Minor surgery BMI > 25 kg/m2 Swollen legs Varicose veins or History of unexplained or recurrent spontaneous Oral contraceptives or hormone replacement Sepsis (< 1 month) Serious lung disease, including pneumonia (< 1 month) Abnormal pulmonary function Acute myocardial infarction Congestive heart failure (< 1 month) History of inflammatory bowel disease Medical patient at bed rest Age 61-74 Arthroscopic surgery Major open surgery (> 45 min) Laparoscopic surgery (> 45 min) Malignancy Confined to bed (> 72 hours) Immobilizing plaster cast Central venous access Age >= 75 History of VTE Family history of VTE Factor V Leiden Prothrombin [id number] Lupus anticoagulant Anticardiolipin antibodies Elevated serum homocysteine Heparin-induced thrombocytopenia Other congenital or acquired thrombophilia Stroke (< 1 month) Elective arthroplasty Hip, pelvis, or leg fracture Acute spinal cord injury (< 1 month) Prophylaxis Regimen Total Risk Factor Score Risk Level Prophylaxis Regimen 0-1 Low Early ambulation 2 Moderate Order ONE of the following: *Sequential Compression Device (SCD) *Heparin 5000 units SQ BID 3-4 Higher Order ONE of the following medications: *Heparin 5000 units SQ TID *Enoxaparin/Lovenox 40 mg SQ daily (WT < 150 kg, CrCl > 30 mL/min) *Enoxaparin/Lovenox 30 mg SQ daily (WT < 150 kg, CrCl > 10-29 mL/min) *Enoxaparin/Lovenox 30 mg SQ BID (WT < 150 kg, CrCl > 30 mL/min) AND/OR *Sequential Compression Device (SCD) 5 or more Highest Order ONE of the following medications: *Heparin 5000 units SQ TID (Preferred with Epidurals) *Enoxaparin/Lovenox 40 mg SQ daily (WT < 150 kg, CrCl > 30 mL/min) *Enoxaparin/Lovenox 30 mg SQ daily (WT < 150 kg, CrCl > 10-29 mL/min) *Enoxaparin/Lovenox 30 mg SQ BID (WT < 150 kg, CrCl > 30 mL/min) AND *Sequential Compression Device (SCD) Assessment and Plan Problem List: (1) NSTEMI (non-ST elevated myocardial infarction) ICD Code: I21.4 - Non-ST elevation (NSTEMI) myocardial infarction (2) Tobacco use ICD Code: Z72.0 - Tobacco use Status: Acute (3) Chest pain ICD Code: R07.9 - Chest pain, unspecified Status: Acute Assessment and Plan Admit the patient to the cardiac floor Continue IV heparin which was started in emergency department Check lipid profile Continue statin and aspirin started by cardiology Cardiology has been consulted by emergency room physician. Low-cholesterol/diet with weight loss. Counseled the patient on tobacco abstinence. Bedrest for now. As per cardiology recommendations catheterization with possible intervention possibly on Friday. Code Status Full code Discussed Condition With Patient, ED physician Physician Certification 2 Midnight Certification Type: Admission for Inpatient Services Order for Inpatient Services The services are ordered in accordance with Medicare regulations or non- Medicare payer requirements, as applicable. In the case of services not specified as inpatient-only, they are appropriately provided as inpatient services in accordance with the 2-midnight benchmark. Estimated LOS (days): 2 days is the estimated time the patient will need to remain in the hospital, assuming treatment plan goals are met and no additional complications. Post-Hospital Plan: Not yet determined Farhan Godinez MD Apr 19, 2017 19:45
[2017-04-19 20:28] LABS: APTT (PATIENT) 36.9 SEC (24.3-30.1)
[2017-04-19 20:35] LABS: CREATINE KINASE 129 U/L (39-308)
[2017-04-19 20:49] LABS: CKMB 3.1 NG/ML (0.5-3.6)
[2017-04-19] MEDS ORDERED: SODIUM CHLORIDE 0.9% FLUSH 5 ML FLUSH IVF SCH (21:00)
[2017-04-19] MEDS: SODIUM CHLORIDE 0.9% FLUSH 10 ML FLUSH IV FLUSH SCH (21:00)
[2017-04-19] MEDS: METOPROLOL TARTRATE 25 MG TAB PO SCH (21:00)
[2017-04-20] VITALS (24 sets, daily range): BP systolic 111–137; BP diastolic 67–76; PULSE 50–65; RESP 16–20; TEMP 97.8–98.6; O2SAT 97–98
[2017-04-20 03:21] LABS: AUTOMATED NEUTROPHIL # 5.9 TH/MM3 (1.8-7.7); BASOPHIL # 0.1 TH/MM3 (0-0.2); BASOPHIL % 0.7 % (0.0-2.0); EOSINOPHIL # 0.7 TH/MM3 (0-0.4); EOSINOPHIL % 6.5 % (0.0-4.0); HEMATOCRIT 41.7 % (39.0-51.0); HEMO FLAGS DIFF FINAL; LYMPH % 27.8 % (9.0-44.0); LYMPHOCYTE # 2.8 TH/MM3 (1.0-4.8); MEAN CELL VOLUME 93.1 FL (80.0-100.0); MEAN CORPUSCULAR HEMOGLOBIN 30.7 PG (27.0-34.0); MEAN CORPUSCULAR HGB CONC 32.9 % (32.0-36.0); MONO % 6.7 % (0.0-8.0); NEUT % 58.3 % (16.0-70.0); PLATELET COUNT 266 TH/MM3 (150-450); RED BLOOD COUNT 4.47 MIL/MM3 (4.50-5.90); RED CELL DISTRIBUTION WIDTH 13.1 % (11.6-17.2); WHITE BLOOD COUNT 10.1 TH/MM3 (4.0-11.0)
[2017-04-20 03:31] LABS: APTT (PATIENT) 41.2 SEC (24.3-30.1)
[2017-04-20 03:37] LABS: ANION GAP 6 MEQ/L (5-15); BICARBONATE 25.3 MEQ/L (21.0-32.0); BLOOD UREA NITROGEN 15 MG/DL (7-18); CHLORIDE 106 MEQ/L (98-107); GLOMERULAR FILTRATION RATE 102 ML/MIN (>89); POTASSIUM 3.7 MEQ/L (3.5-5.1); SODIUM (NA) 137 MEQ/L (136-145)
[2017-04-20 03:40] LABS: CREATINE KINASE 116 U/L (39-308)
[2017-04-20 04:22] LABS: CKMB 2.6 NG/ML (0.5-3.6)
--- NOTE | 2017-04-20 07:47 | EKG ---
Date Performed: 04/19/2017 Time Performed: 23:13:04 PTAGE: 56 years EKG: Sinus bradycardia Normal ECG except for rate No significant change from prior electrocardio gram. PREVIOUS TRACING : 04/19/2017 14.29 DOCTOR: Jayesh Macedo Interpretating Date/Time 04/20/2017 07:46:54
[2017-04-20] MEDS: METOPROLOL TARTRATE 25 MG TAB PO SCH ×2 (09:00→21:00)
[2017-04-20] MEDS: ATORVASTATIN 20 MG TAB PO SCH (09:00)
[2017-04-20] MEDS: SODIUM CHLORIDE 0.9% FLUSH 10 ML FLUSH IV FLUSH SCH ×2 (09:00→21:00)
[2017-04-20] MEDS ORDERED: ASPIRIN 325 MG TAB PO SCH (09:00)
[2017-04-20 10:06] LABS: APTT (PATIENT) 35.8 SEC (24.3-30.1)
--- NOTE | 2017-04-20 11:10 | MB ---
cc: BIJAN MATAMOROS DO DATE OF CONSULTATION: April 20, 2017 REASON FOR CONSULTATION Acute coronary syndrome. HISTORY OF PRESENT ILLNESS Torres White is a pleasant 56-year-old male who I was asked to see by Dr. Macedo for consideration of cardiac catheterization. The patient originally presented to [facility] on April 19, 2017 due chest pain. He was found to have an elevated troponin of 0.57 and started on a heparin drip. Since that time he has had no chest pain or shortness of breath. Apparently, him and his family are up from [place] doing [employer] work. The pain came on at 03:00 a.m. and woke him up with pressure radiating to his left arm and he was short of breath. It lasted for an hour and then resolved and it occurred two more times. At this time he took his blood pressure and it was extremely high so he took 100 mg of atenolol. PAST MEDICAL HISTORY 1. Hypertension. 2. Osteoarthritis. PAST SURGICAL HISTORY Denies. ALLERGIES NO KNOWN DRUG ALLERGIES. MEDICATIONS Denies. FAMILY HISTORY Father was diagnosed with coronary artery disease at the age of 82 and lived to be 89. Denies premature coronary artery disease or sudden cardiac within the family. SOCIAL HISTORY The patient has smoked one-pack of cigarettes daily for 40 years. He drinks a few beers per month. Denies drug abuse. He has a [employer] company. REVIEW OF SYSTEMS 14-systems were reviewed including osteopathic pertinent positives and negatives above, otherwise negative. PHYSICAL EXAMINATION VITAL SIGNS: Temperature 97.8, heart rate 53, blood pressure 111/67, respirations 16, pulse ox 98% on 2 liters. GENERAL: The patient appears well, in no acute distress, alert awake and oriented x3. HEENT: Extraocular muscles intact. Mucous membranes are moist. NECK: Supple. No JVD at 45 degrees. No carotid bruits heard bilaterally. Carotid upstroke is brisk in nature. HEART: Heart is regular rate and rhythm. Positive first and second heart sounds with no murmurs, gallops or rubs. LUNGS: Clear to auscultation bilaterally. No wheezes, rales or rhonchi. ABDOMEN: Soft, nontender, nondistended. No organomegaly noted. EXTREMITIES: Show no clubbing, cyanosis or edema. Femoral and distal pulses intact bilaterally. NEUROLOGIC: No focal deficits. SKIN: Warm, dry and intact. OSTEOPATHIC: No kyphoscoliosis, lordosis or paraspinal tender points. LABORATORY FINDINGS Hemoglobin 13.7, hematocrit 41.7, platelets 266. Potassium 3.7, BUN 15, creatinine 0.78, troponin increasing to 0.57, total cholesterol 182, LDL 114, HDL 39.8, triglycerides 143. ELECTROCARDIOGRAM Electrocardiogram (April 19, 2017 at 2313) sinus bradycardia with no significant ST-T wave changes. IMPRESSION 1. N-STEMI. 2. Chest pain concerning for coronary insufficiency. 3. Tobacco abuse. RECOMMENDATIONS 1. Mr. White appears to have presented with chest pain concerning for coronary insufficiency as well as an elevated troponin. Because of this he will be recommended cardiac catheterization. 2. Risks, benefits and alternatives were explained to him through his son has a local owner operator truck driver and he consents as such. 3. He will continue on a heparin drip at this time. 4. He has been placed on aspirin, statin and beta rod therapy. Will consider further therapy with an SUSAN inhibitor postprocedure. 5. Further recommendations will be made based on the hospital course. Thank you for allowing me to see Torres White, if there are any questions please do not hesitate to call. Bijan Matamoros DO VGP/TLL /10:16 AM /10:47 AM
--- NOTE | 2017-04-20 12:50 | EKG ---
Date Performed: 04/19/2017 Time Performed: 14:29:11 PTAGE: 56 years EKG: SINUS BRADYCARDIA BORDERLINE ECG NO SIG CHANGE PREVIOUS TRACING : 04/19/2017 10.56 DOCTOR: David Rodriguez Interpretating Date/Time 04/20/2017 12:49:40
--- NOTE | 2017-04-20 12:51 | EKG ---
Date Performed: 04/19/2017 Time Performed: 10:56:35 PTAGE: 56 years EKG: SINUS BRADYCARDIA NO SIG CHANGE BORDERLINE ECG PREVIOUS TRACING : 04/19/2017 07.26 DOCTOR: David Rodriguez Interpretating Date/Time 04/20/2017 12:50:08
--- NOTE | 2017-04-20 15:50 | HHI.PR ---
Subjective Remarks No further cp denies sob stable vital signs Objective Vitals Vital Signs Date Time Temp Pulse Resp B/P (MAP) Pulse Ox O2 Delivery O2 Flow Rate FiO2 04/20/17 15:00 58 04/20/17 14:00 58 04/20/17 13:00 56 04/20/17 12:49 21 04/20/17 12:00 98.1 55 16 137/72 (93) 98 04/20/17 12:00 60 04/20/17 11:00 58 04/20/17 10:00 54 04/20/17 09:00 58 04/20/17 08:00 97.8 53 16 111/67 (82) 98 04/20/17 08:00 53 04/20/17 07:00 52 04/20/17 05:02 50 04/20/17 04:20 98.2 54 20 114/73 (87) 97 04/20/17 04:00 52 04/20/17 03:00 56 04/20/17 02:00 54 04/20/17 01:00 60 04/20/17 00:00 58 04/19/17 23:50 98.2 56 20 117/69 (85) 97 04/19/17 23:00 59 04/19/17 22:00 58 04/19/17 21:00 56 04/19/17 20:00 64 04/19/17 19:22 98.2 57 20 108/68 (81) 98 04/19/17 19:00 58 04/19/17 18:30 62 04/19/17 17:20 98.0 58 20 113/72 (86) 97 04/19/17 16:00 60 18 108/66 (80) 98 Nasal Cannula 2.00 I/O 04/19/17 04/19/17 04/19/17 04/20/17 04/20/17 04/20/17 07:00 15:00 23:00 07:00 15:00 23:00 Intake Total 1000 ml 915.4 ml 720 ml Output Total 1 ml 725 ml Balance 1000 ml 914.4 ml -5 ml Intake Oral 360 ml 720 ml IV Total 1000 ml 555.4 ml Output Urine Total 725 ml Stool Total 1 ml # Voids 2 Result Diagram: 04/20/1724304/20/17243 Imaging Last Impressions Chest/Thorax CTA 04/19/17 0824 Signed Impressions: Service Date/Time: Wednesday, April 19, 2017 08:59 - CONCLUSION: 1. No evidence of aortic dissection or aneurysmal dilatation. 2. Mild atherosclerotic changes throughout the thoracic aorta. 3. No acute intrathoracic disease. Franklin Munoz MD Chest X-Ray 04/19/17 0729 Signed Impressions: Service Date/Time: Wednesday, April 19, 2017 08:08 - CONCLUSION: No acute disease. Compensated cardiomegaly. Franklin Munoz MD Objective Remarks AAOx3 NAD CLesr lungs BL S1S2 RRR, no MRG no edemain lower extremities abdome n soft, NT, ND Medications and IVs Current Medications Medications (Trade) Dose Ordered Sig/William Route Start Time Stop Time Status Last Admin (Tylenol) 500 mg Q4H PRN PO 04/19/17 10:45 ([place] 7.5-325 Mg) 1 tab Q4H PRN PO 04/19/17 10:45 (Zofran Inj) 4 mg Q6H PRN IV PUSH 04/19/17 10:45 (Lipitor) 20 mg DAILY PO 04/19/17 12:30 04/20/17 09:00 (Lopressor) 25 mg Q12HR PO 04/19/17 21:00 (NS Flush) 2 ml BID IV FLUSH 04/19/17 21:00 04/20/17 09:00 (NS Flush) 2 ml UNSCH PRN IV FLUSH 04/19/17 15:45 (Aspirin Chew) 81 mg DAILY CHEW 04/21/17 09:00 A/P Problem List: (1) NSTEMI (non-ST elevated myocardial infarction) ICD Code: I21.4 - Non-ST elevation (NSTEMI) myocardial infarction (2) Tobacco use ICD Code: Z72.0 - Tobacco use Status: Acute (3) Chest pain ICD Code: R07.9 - Chest pain, unspecified Status: Acute Assessment and Plan Continue IV heparin , asa, beta rod ans statin troponin peaked at 0.5 appreciate cardiology recommendations advised smoking cessation DVt proph: heparin IV For cardiac cath in am Farhan Godinez MD Apr 20, 2017 15:50
[2017-04-20 16:41] LABS: APTT (PATIENT) 42.2 SEC (24.3-30.1)
[2017-04-21] VITALS (19 sets, daily range): BP systolic 122–130; BP diastolic 66–78; PULSE 53–74; RESP 16–18; TEMP 97.8–98; O2SAT 96–100
[2017-04-21 06:31] LABS: PROTHROMBIN TIME - PATIENT 11.1 SEC (9.8-11.6)
[2017-04-21] MEDS ORDERED: HEPARIN-NS/PF INJ 1,500 ML ONE (08:01)
[2017-04-21] MEDS ORDERED: HEPARIN SODIUM - IV 10,000 UNITS/10 ML VIAL ONE (08:02)
[2017-04-21] MEDS ORDERED: NITROGLYCERIN INJ 5 ML ONE (08:02)
[2017-04-21] MEDS ORDERED: VERAPAMIL HCL 5 MG/2 ML VIAL ONE (08:02)
[2017-04-21] MEDS: ATORVASTATIN 20 MG TAB PO SCH (08:16)
[2017-04-21] MEDS: METOPROLOL TARTRATE 25 MG TAB PO SCH (08:18)
[2017-04-21] MEDS: SODIUM CHLORIDE 0.9% FLUSH 10 ML FLUSH IV FLUSH SCH (08:19)
[2017-04-21] MEDS ORDERED: MIDAZOLAM HCL 2 MG/2 ML VIAL ONE (08:33)
[2017-04-21] MEDS ORDERED: ASPIRIN 81 MG CHEW TAB CHEW SCH (09:00)
--- NOTE | 2017-04-21 09:26 | CATHPROC ---
Qianmi HIS Report Study Information Study Number Admission Scheduled Start Study Start [id number] Apr 19 2017 3:48PM 04/20/2017 Apr 21 2017 8:18AM [place] [facility] Cardiac Catheterization Admit Source Facility Department Emergency department [facility] - [facility] Physician and Clinical Staff Initial Bijan Galindo Mail Handlercatrina Rebolledo RN, Kit Fish cathlab, cathlab Recorder Santosh García RCIS(BS) Dot Mcdonnell RCIS TECH2 Procedures Performed Procedure Location (Site) Vessel Name Coronary Angiograms LCA Left Coronary Coronary Angiograms RCA Right Coronary L Heart Cath Equipment Time Marketing Programs Specialist Description Size Mfg Part Number Used/Scraped TRANSDUCER, TRUWAVE [id number] 08:56 PAZ FOOTE * Used W/STOCKCOCK *[id number] *[id number] [id number] *[id number] 08:56 EdSurge PACK, CCL CUSTOM * Used *[id number] 08:56 [employer]ge SUPPORT, ARTERIAL ADULT 21228 *[id number] Used BAND, RADIAL COMPRESSION TR [id number] 09:11 [employer]Ed [employer] MEDICAL 29CM Used LARGE 29 *[id number] BAND, RADIAL COMPRESSION TR [id number] 09:11 [employer] MEDICAL 29CM Used LARGE 29 *[id number] 08:56 Tehnologii obratnyh zadach WIRE, EXCHANGE 260CM 3MMJ 260CM Used *[id number] 08:56 NAMIC MANIFOLD, 4 PORT * Used *[id number] 08:56 NYCOMED OMNIPAQUE, 350 MG, 150ML 150ML [id number] Used [id number] 08:56 MCCALL MEDICAL BLANKET,WARM AIR CCL * Used *[id number] SHEATH, FR6 TRANSRADIAL RM*[id number] 08:56 [employer] MEDICAL FR 6 Used SLENDER 10CM *[id number] History: Allergies Allergy Reaction No Known Allergies History: Risk Factors Family History of Hypertension Dyslipidemia Previous KS Previous Heart Failure Premature CAD Yes No No No No Prior Valve Prior PCI Prior CABG Surgery No No No Cerebrovascular Peripheral Artery Chronic Lung On Dialysis Diabetes Disease Disease Disease No No No No No History: Stress Tests Stress or Imaging Studies Performed No History: Other Disease Selection Items HTN History: Other Current Smoker Packs a Day Years Used Pack Years Yes 1 40 40 Labs Hgb (g/dl) Hct (%) WBC (l/cumm) Platelets (thousands) 11.60-17.00 35.00-51.00 4.00-11.00 150.00-450.00 13.7 41.7 10.1 266 Glucose (mg/dl) BUN (mg/dl) Creatinine (mg/dl) BUN:Creatinine (1:x) 74.00-106.00 7.00-18.00 0.50-1.30 10.00-20.00 122 15 0.7 21.4 Na (meq/l) K (meq/l) 136.00-145.00 3.50-5.10 137 3.7 INR (PTT:PT) 0.90-1.10 1 Troponin I (ng/ml) CPK (u/l) CPK-MB (ng/ML) 0.02-0.05 26.00-308.00 0.50-3.60 0.57 129 3.1 Medication Medication Total Dose (Bolus/Oral) Medication Total Dosage/Unit 1% XYLOCAINE 3 mL RADIAL COCKTAIL 5 mL (Bolus) Medications (Bolus/Oral) Medication Time Given Dosage/Unit Administered By Reason 1% XYLOCAINE 04/21/2017 8:53:58 AM 3 mL Bijan Donovan 3 mL 1% XYLOCAINE given in lab by Bijan Donovan in Right Radial via Subcutaneous. Ordered by Bijan Walker. Ntg 200mcg Verapamil 2.5mg Heparin RADIAL COCKTAIL 04/21/2017 8:55:56 AM 5 mL (Bolus) Bijan Donovan 3000U 5 mL (Bolus) RADIAL COCKTAIL given in lab by Bijan Donovan via Radial. Using [Solution Name]. O rdered by Bijan Donovan Reason: Ntg 200mcg Verapamil 2.5mg Heparin 4000U. Medication (Drip) Medication Time Given Dosage/Unit Concentration/Unit Diluent (ml) Solutio n IV Solutions 04/21/2017 8:24:29 AM 0 mL (IV) 500 NaCl .9 Patient arrived on IV Solutions given by shawanda, shawanda in Left Antecubital via Peripheral IV. Pump /Drip Flow = 20 ml/hr using NaCl .9. Ordered by Bijan Donovan Initial Case Assessment Cardiovascular HR Rhythm NIBP Chest Pain 68 nsr 113/88 0 Edema Present Skin color Skin None Normal Warm Dry Circulatory - Right Pulses Dorsalis Pedis Femoral Radial 1 2 2 Scale (0,1,2,3,4,d) Circulatory - Left Pulses Dorsalis Pedis Femoral Radial 2 Scale (0,1,2,3,4,d) Neurological State Oriented to time-place- Alert Moves all extremities person Respiration - General Respiration Rate SpO2 (%) (B/min) 15 96 Final Case Assessment Cardiovascular HR Rhythm NIBP Chest Pain 61 nsr 129/66 0 Edema Present Skin color Skin None Normal Warm Dry Circulatory - Right Pulses Dorsalis Pedis Femoral Radial 1 2 2 Scale (0,1,2,3,4,d) Circulatory - Left Pulses Dorsalis Pedis Femoral Radial 2 Scale (0,1,2,3,4,d) Neurological State Oriented to time-place- Alert Moves all extremities person Respiration - General Respiration Rate SpO2 (%) (B/min) 15 96 Chronological Log Time Study Chronological Log 8:24:15 Patient arrived via Bed. 8:24:16 Patient Name, D.O.B, / Armband Verified By R.N. 8:24:16 Consent signed by the physician and the patient and verified by the [facility] staff. 8:24:17 Pre-op and post- op instructions given; patient acknowledges understanding of instructions. 8:24:18 Verbal Stimulation=2 Physical Stimulation=2 Airway=2 Respiration=2 TOTAL=8. (0=absent, 1=li mited, 2=present) 8:24:18 Presedation assessment performed by [facility] RN. 8:24:20 Allens test performed on the right radial and ulnar artery. POSITIVE. 8:24:21 Immediate Presedation assesment performed by physician. 8:24:21 Patient has been NPO for More than 6Hrs. 8:24:22 Skin Breakdown- none per patient 8:24:23 Patient Warmer Placed on the Table. 8:24:27 Tonio Prominences Protected 8:24:28 A # 20 IV was noted in the Antecubital (left). Grade = 0 Patient arrived on IV Solutions given by cathlab, cathlab in Left Antecubital via Peripheral IV . Pump/Drip Flow = 20 8:24:29 ml/hr using NaCl .9. Ordered by Bijan Donovan 8:24:29 History and physical on the chart or being dictated. Vitals capture started with the following parameters, Patient=Adult, Interval=5 min, Initial Pr jpsgdq=733 mmHg, 8:34:00 Deflation Rate=5 mmHg, Cuff placed on Right Arm Assessment: Initial Case, HR=68 BPM, Rhythm=nsr, BEGF=994/88 mmhg, Chest Pain=0, Edema=None, Col or=Normal, Skin = Warm, Dry Right Pulses: Denzel Ped=1, Femoral=2, Radial=2 8:34:25 Left Pulses: Femoral=2 Neurological: State=Alert, Ox3, TANG Respiration: Resp=15 B/min, SpO2=96 % 8:34:41 Reference ECG taken 8:34:44 HR=62 bpm, XTCX=737/88 mmhg, SpO2=96.0 %, Resp=16 B/min, Pain=0, Jagdish=10, Underwood=2 8:40:17 HR=60 bpm, DAGA=662/82 mmhg, SpO2=95.0 %, Resp=16 B/min, Pain=0, Jagdish=10, Underwood=2 8:40:55 Right Radial and groin(s) prepped with 2% chlorhexidine, and draped after a 3 min. waiting t ramya. 8:45:16 HR=56 bpm, CHAW=381/89 mmhg, SpO2=95 %, Resp=15 B/min, Pain=0, Jagdish=10, Underwood=2 8:48:34 Pressure channel 1 zeroed. 8:48:43 MD arrived. 8:48:49 Contrast Scanned 8:48:50 Immediate Presedation assesment performed by physician. 8:49:41 HR=59 bpm, YNAK=147/77 mmhg, SpO2=94.0 %, Resp=19 B/min, Pain=0, Jagdish=10, Underwood=2 Time Out. Correct patient, correct procedure, correct physician, power injector not loaded with contrast with surgical 8:53:00 team present. Time Out Concurred by MD and individual staff in procedure. 8:53:37 Case Start 8:53:38 Verbal Stimulation=2 Physical Stimulation=2 Airway=2 Respiration=2 TOTAL=8. (0=absent, 1=hardwick ited, 2=present) 3 mL 1% XYLOCAINE given in lab by Bijan Donovan in Right Radial via Subcutaneous. Ordered by Zion, 8:53:58 Bijan Schneider 8:55:12 HR=56 bpm, LMAG=713/81 mmhg, SpO2=92 %, Resp=13 B/min, Pain=0, Jagdish=10, Underwood=2 8:55:29 Access site was Right Radial Artery. A SHEATH, FR6 TRANSRADIAL SLENDER 10CM FR 6 was advanced into the Radial (right) using the Percu tanedella 8:55:37 technique. 5 mL (Bolus) RADIAL COCKTAIL given in lab by Bijan Donovan via Radial. Using [Solution Nam e]. Ordered by 8:55:56 Bijan Donovan. Reason: Ntg 200mcg Verapamil 2.5mg Heparin 4000U. A JR 4.0 INFINITI CATHETER FR 5 was advanced over a wire. OMNIPAQUE, 350 MG, 150ML 150ML was use d for 8:56:30 injections. Recorded Pressure: LV, HR=65, Condition=Condition 1 8:58:34 (Left Ventricle) LV 115/0/8 Recorded Pressure: LV, Ao, HR=65, Condition=Condition 1 8:58:53 (Left Ventricle) LV 105/4/10, (Aorta) Ao 115/71/89 8:59:09 The RCA was injected and visualized at various angles. OMNIPAQUE, 350 MG, 150ML 150ML used. Recorded Pressure: Ao, HR=65, Condition=Condition 1 8:59:35 (Aorta) Ao 111/72/89 8:59:41 HR=63 bpm, VLCS=060/75 mmhg, SpO2=94.0 %, Resp=15 B/min, Pain=0, Jagdish=10, Underwood=2 After removing the current catheter a JL 3.5 INFINITI CATHETER FR 5 was advanced over a WIRE, EX CHANGE 260CM 9:00:05 3MMJ 260CM. 9:02:22 The LCA was injected and visualized at various angles. OMNIPAQUE, 350 MG, 150ML 150ML used. 9:04:38 HR=67 bpm, WCLQ=492/77 mmhg, SpO2=95 %, Resp=15 B/min, Pain=0, Jagdish=10, Underwood=2 9:09:41 HR=66 bpm, FOJA=099/66 mmhg, SpO2=97.0 %, Resp=10 B/min, Pain=0, Jagdish=10, Underwood=2 9:10:49 Catheter was removed Radial Compression Device Used. 12 mLs of air placed in BAND, RADIAL COMPRESSION TR LARGE 29 29C M. Affected 9:11:14 hand 95 % O2 saturation. 9:13:44 Case End Assessment: Final Case, HR=61 BPM, Rhythm=nsr, WITB=884/66 mmhg, Chest Pain=0, Edema=None, Col or=Normal, Skin = Warm, Dry Right Pulses: Denzel Ped=1, Femoral=2, Radial=2 9:13:48 Left Pulses: Femoral=2 Neurological: State=Alert, Ox3, TANG Respiration: Resp=15 B/min, SpO2=96 % 9:14:01 Catheter(s) removed without difficulty 9:14:04 Sterile dressing applied to site 9:14:05 No case complications noted. 9:14:06 Cine recording checked. 9:14:20 Bedside Report will be given. 9:14:22 Verbal Stimulation=2 Physical Stimulation=2 Airway=2 Respiration=2 TOTAL=8. (0=absent, 1=l imited, 2=present) 9:14:28 A Left Heart Cath was performed. 9:14:40 HR=63 bpm, LEUP=533/83 mmhg, SpO2=97.0 %, Resp=11 B/min 9:19:25 Vitals capture stopped. 9:19:31 Patient moved to [facility] End Study - Contrast Media Used In Study Contrast Total Opened (mL) Total Used (mL) Total Wasted (mL) Omnipaque 40 40 0 End Study - Maximum Contrast Load Max Contrast Load (mL) 693.5 End Study - Radiation Exposure Fluoro Time (minutes) 3.4 End Study - Patient Disposition Complications Transferred To Interventional Outcome No Telemetry Bed No attempt made
[2017-04-21] MEDS ORDERED: MISC INFORMATION XX ONE (09:30)
[2017-04-21] MEDS ORDERED: IOHEXOL 350 MG/ML 50 ML BTL (for Cath Lab) OTHER ONE (10:01)
--- NOTE | 2017-04-21 10:10 | MA ---
cc: BIJAN MATAMOROS DO DATE April 21, 2017 PROCEDURE Left heart catheterization, coronary angiogram. PREPROCEDURE DIAGNOSES NSTEMI. Chest pain. Accelerated hypertension. POSTPROCEDURE DIAGNOSES Mild coronary artery disease. Accelerated hypertension. MEDICATIONS GIVEN 1. Nitro 200 mcg 2. Verapamil 2.5 mg. 3. Heparin 4000 units. CONTRAST USED 40 cc. FLUOROSCOPY 3.1 minutes ESTIMATED BLOOD LOSS 10 cc PROCEDURAL SUMMARY SUMMARY Torres White is a pleasant 56-year-old male who presented to the [facility] Emergency Room. After having chest pain. He was found to have a minimally elevated troponin and because of his chest pain and troponin he was recommended cardiac catheterization. The risks, benefits and alternatives were explained to him and his son who translated for him and he consented as such. He was brought to lab and prepped in the usual sterile fashion. The right radial artery was accessed using modified Seldinger technique and placement of a 5/6-[place] Slender Sheath. This was easily aspirated and flushed. A JR-4 was advanced over a J-wire to the ascending aorta and across the aortic valve for measurement of left ventricular pressure. This was pulled back across the aortic valve showing no significant gradient of aortic stenosis. JR-4 was used for selective angiography of the right coronary artery. This was exchanged out for a JL-3.5 which was used for selective angiography of the left coronary artery. The JL-3.5 was removed over a J-wire. Radial band was placed over the arteriotomy site for hemostasis. The patient left the packing house laborer cardiovascularly stable. FINDINGS LEFT MAIN: A normal-sized vessel with adequate reflux and no significant disease. It trifurcates into an LAD ramus and circumflex. LAD: Normal to large-sized vessel with mild luminal irregularities through the proximal portion. The [id number] portion has mild luminal irregularities with tortuosity. It gives off two small diagonals with no significant disease. It is a Type III LAD. RAMUS: A small vessel with mild luminal irregularities throughout. LEFT CIRCUMFLEX: Moderate to large-sized vessel with no significant disease. The distal portion has mild luminal irregularities. It is a dominant left circumflex with two obtuse marginals, a posterior lateral branch and a PDA. RIGHT CORONARY ARTERY: A small nondominant vessel with a 60-70% lesion. LVEDP: 10. IMPRESSIONS 1. Chest pain possibly due to accelerated hypertension. 2. Accelerated hypertension on presentation. 3. NSTEMI. 4. Mild coronary artery disease. RECOMMENDATIONS 1. Mr. White presented with chest pain which may be due to his accelerated hypertension as his blood pressure at home was 187/107. 2. He has mild coronary artery disease on cardiac catheterization and we will continue medical management. 3. He should be placed aspirin 81 mg daily as well as a statin and beta rod therapy. He will be started on an SUSAN inhibitor. 4. He should follow-up outpatient for blood pressure control. 5. This will be discussed with the son. 6. I believe that he is cardiovascularly stable to be discharged today. Thank you for allowing me to see Torres White. If there are any questions, please do not hesitate to call. Bijan Matamoros DO VGP/SSB /9:29 AM /9:48 AM
[2017-04-21] MEDS ORDERED: ASPI81CH25 CHEW (12:41)
[2017-04-21] MEDS ORDERED: ATOR20TA15 PO (12:41)
[2017-04-21] MEDS ORDERED: METO25TA3 PO (12:41)
[2017-04-21] MEDS ORDERED: LISI2.5T3 PO (12:41)
--- NOTE | 2017-04-21 12:44 | HHI.DCPOC ---
Discharge Care Plan Diagnosis: (1) HTN (hypertension) (2) NSTEMI (non-ST elevated myocardial infarction) (3) Tobacco use (4) Chest pain Goals to Promote Your Health * To prevent worsening of your condition and complications * To maintain your health at the optimal level Directions to Meet Your Goals Take your medications as prescribed Follow your dietary instruction Follow activity as directed Keep your appointments as scheduled Take your immunizations and boosters as scheduled If your symptoms worsen call your PCP, if no PCP go to Urgent Care Center or Emergency Room Smoking is Dangerous to Your Health. Avoid second hand smoke Call the 24-hour hour crisis hotline for domestic abuse at Farhan Godinez MD Apr 21, 2017 12:44
--- NOTE | 2017-04-21 12:56 | HHI.DS ---
Discharge Summary Admission Date Apr 19, 2017 at 15:48 Discharge Date: Apr 21, 2017 Admitting Diagnosis chest pain, tobacco use, (1) NSTEMI (non-ST elevated myocardial infarction) ICD Code: I21.4 - Non-ST elevation (NSTEMI) myocardial infarction Diagnosis: Principal (2) Tobacco use ICD Code: Z72.0 - Tobacco use Diagnosis: Principal Status: Acute (3) Chest pain ICD Code: R07.9 - Chest pain, unspecified Diagnosis: Principal Status: Acute Procedures That is post cardiac catheterization with findings of mild CAD. Brief History - From Admission This is a 56-year-old male who presented complaining of chest pain. The patient has been active and has no chronic history. Patient reports that approximately 3 AM he was awoken with severe substernal pressure radiating to both shoulders and associated with sob. This lasted for proximal and hour and then resolved. The pain came back for approximately 2 more times. The patient states that his blood pressure was elevated so he took 100 mg of atenolol from his medication. The patient is symptom-free now. EKG in emergency department showed sinus bradycardia and sinus rhythm with no acute changes. The patient was seen in emergency department and he was found the patient had elevated cardiac enzymes that were trending up. CBC/BMP: 04/20/17 0244 04/20/17 0244 Significant Findings Laboratory Tests Test 04/19/17 07:30 04/19/17 11:00 04/19/17 14:00 04/19/17 19:58 White Blood Count 13.1 TH/MM3 (4.0-11.0) Neutrophils (%) (Auto) 83.0 % (16.0-70.0) Neutrophils # (Auto) 10.8 TH/MM3 (1.8-7.7) Activated Partial Thromboplast Time 32.4 SEC (24.3-30.1) 36.9 SEC (24.3-30.1) Random Glucose 118 MG/DL (74-106) Estimat Glomerular Filtration Rate 87 ML/MIN (>89) Troponin I LESS THAN 0.02 NG/ML 0.14 NG/ML (0.02-0.05) 0.54 NG/ML (0.02-0.05) 0.57 NG/ML (0.02-0.05) Total Protein 8.4 GM/DL (6.4-8.2) LDL Cholesterol 114 MG/DL (0-99) HDL Cholesterol 39.8 MG/DL (40.0-60.0) Test 04/20/17 02:44 04/20/17 09:25 04/20/17 15:33 04/20/17 21:13 Red Blood Count 4.47 MIL/MM3 (4.50-5.90) Eosinophils (%) (Auto) 6.5 % (0.0-4.0) Eosinophils # (Auto) 0.7 TH/MM3 (0-0.4) Activated Partial Thromboplast Time 41.2 SEC (24.3-30.1) 35.8 SEC (24.3-30.1) 42.2 SEC (24.3-30.1) 42.0 SEC (24.3-30.1) Random Glucose 122 MG/DL (74-106) Calcium Level 8.2 MG/DL (8.5-10.1) Troponin I 0.34 NG/ML (0.02-0.05) Test 04/21/17 06:00 04/21/17 10:13 Imaging Last Impressions Chest/Thorax CTA 04/19/17 08 Signed Impressions: Service Date/Time: Wednesday, April 19, 2017 08:59 - CONCLUSION: 1. No evidence of aortic dissection or aneurysmal dilatation. 2. Mild atherosclerotic changes throughout the thoracic aorta. 3. No acute intrathoracic disease. Franklin Munoz MD Chest X-Ray 04/19/17 6253 Signed Impressions: Service Date/Time: Wednesday, April 19, 2017 08:08 - CONCLUSION: No acute disease. Compensated cardiomegaly. Franklin Munoz MD PE at Discharge AAOx3 NAD CLesr lungs BL S1S2 RRR, no MRG no edemain lower extremities abdome n soft, NT, ND Pt update on day of discharge The patient denies any chest pain or shortness of breath. The patient underwent cardiac catheterization with findings of minimal CAD. The case was discussed with Dr. Donovan who recommended medical management with aspirin, statin, beta rod and low-dose SUSAN inhibitor. Hospital Course The patient was admitted to the medical floor, cardiac enzymes were monitored, the patient was started on IV heparin, aspirin, beta rod and statin. Troponins peaked at 0.5. The chest pain completely resolved. It was noted that the patient's blood pressure was elevated upon presentation but later remained stable. The patient was advised on smoking cessation. Patient underwent a cardiac catheterization in which minimal CAD was diagnosed. Medical management recommended by cardiology. The patient's follow up outpatient for blood pressure control. Pt Condition on Discharge: Stable Discharge Disposition: Discharge Home Discharge Time: <= 30 minutes Discharge Instructions DIET: Follow Instructions for: Heart Healthy Diet Activities you can perform: Regular-No Restrictions Activities to Avoid: Strenuous Activity Follow up Referrals: Cardiology - 2 Weeks PCP Follow-up - 1 Week with Gildardo Keller MD New Medications: Lisinopril (Lisinopril) 2.5 Mg Tab 2.5 MG PO DAILY, #30 TAB 0 Refills Aspirin (Aspirin Low Strength) 81 Mg Chew 81 MG CHEW DAILY for Blood Clot Prevention, #30 EA Atorvastatin (Atorvastatin) 20 Mg Tab 20 MG PO DAILY for Cholesterol Management, #31 TAB Metoprolol Tartrate (Metoprolol Tartrate) 25 Mg Tab 25 MG PO Q12HR for Blood Pressure Management, #62 TAB Farhan Godinez MD Apr 21, 2017 12:56
--- NOTE | 2017-04-21 13:24 | PD.CARD.PN ---
Subjective Subjective Remarks Doing well Post-cath, no chest pain/SOB Objective Medications Current Medications Medications (Trade) Dose Ordered Sig/William Route Start Time Stop Time Status Last Admin (Tylenol) 500 mg Q4H PRN PO 04/19/17 10:45 (Mckenzie 7.5-325 Mg) 1 tab Q4H PRN PO 04/19/17 10:45 (Zofran Inj) 4 mg Q6H PRN IV PUSH 04/19/17 10:45 (Lipitor) 20 mg DAILY PO 04/19/17 12:30 04/21/17 08:16 (Lopressor) 25 mg Q12HR PO 04/19/17 21:00 04/21/17 08:18 (NS Flush) 2 ml BID IV FLUSH 04/19/17 21:00 04/21/17 08:19 (NS Flush) 2 ml UNSCH PRN IV FLUSH 04/19/17 15:45 (Aspirin Chew) 81 mg DAILY CHEW 04/21/17 09:00 04/21/17 08:17 Vital Signs / I&O Vital Signs Date Time Temp Pulse Resp B/P (MAP) Pulse Ox O2 Delivery O2 Flow Rate FiO2 04/21/17 12:00 70 04/21/17 12:00 98.0 66 18 130/68 (88) 96 04/21/17 11:46 98 04/21/17 11:00 72 04/21/17 08:13 97.8 61 16 127/76 (93) 98 04/21/17 06:00 61 04/21/17 05:00 60 04/21/17 04:30 53 18 122/66 (84) 96 04/21/17 04:00 58 04/21/17 03:00 56 04/21/17 02:00 58 04/21/17 01:00 60 04/21/17 00:46 59 18 126/78 (94) 100 04/21/17 00:00 56 04/20/17 23:00 63 04/20/17 22:00 59 04/20/17 21:00 57 04/20/17 20:00 98.6 62 16 123/76 (92) 97 04/20/17 20:00 58 04/20/17 19:00 65 04/20/17 18:00 58 04/20/17 17:00 58 04/20/17 16:00 97.8 62 16 124/75 (91) 97 04/20/17 16:00 58 04/20/17 15:00 58 04/20/17 14:00 58 I/O 04/20/17 04/20/17 04/20/17 04/21/17 04/21/17 04/21/17 07:00 15:00 23:00 07:00 15:00 23:00 Intake Total 720 ml 870 ml 596 ml Output Total 725 ml 0 ml 0 ml Balance -5 ml 870 ml 596 ml Intake Oral 720 ml 720 ml 400 ml IV Total 150 ml 196 ml Output Urine Total 725 ml Stool Total 0 ml 0 ml # Voids 4 2 Physical Exam GENERAL: NAD, AAOx3 SKIN: Warm and dry. HEAD: Atraumatic. Normocephalic. EYES: Pupils equal and round. No scleral icterus. No injection or drainage. ENT: No nasal bleeding or discharge. Mucous membranes pink and moist. NECK: Trachea midline. No JVD. CARDIOVASCULAR: Regular rate and rhythm. RESPIRATORY: No accessory muscle use. Clear to auscultation. Breath sounds equal bilaterally. GASTROINTESTINAL: Abdomen soft, non-tender, nondistended. Hepatic and splenic margins not palpable. MUSCULOSKELETAL: Extremities without clubbing, cyanosis, or edema. No obvious deformities. Right radial with TR band NEUROLOGICAL: Awake and alert. No obvious cranial nerve deficits. Motor grossly within normal limits. Five out of 5 muscle strength in the arms and legs. Normal speech. PSYCHIATRIC: Appropriate mood and affect; insight and judgment normal. Laboratory Laboratory Tests Test 04/20/17 15:33 04/20/17 21:13 04/21/17 06:00 04/21/17 10:13 Activated Partial Thromboplast Time 42.2 SEC 42.0 SEC 29.0 SEC Prothrombin Time 11.1 SEC Prothromb Time International Ratio 1.0 RATIO Assessment and Plan Problem List: (1) Accelerated hypertension ICD Codes: I10 - Essential (primary) hypertension (2) NSTEMI (non-ST elevated myocardial infarction) ICD Codes: I21.4 - Non-ST elevation (NSTEMI) myocardial infarction (3) Chest pain ICD Codes: R07.9 - Chest pain, unspecified Status: Acute (4) HTN (hypertension) ICD Codes: I10 - Essential (primary) hypertension (5) Tobacco use ICD Codes: Z72.0 - Tobacco use Status: Acute Assessment and Plan 1) Mild CAD by catheterization 2) Elevated troponin due to accelerated HTN 3) Con't ASA/Statin/BB Add SUSAN-I 4) Cardiovascularly stable for discharge 5) Follow up with PCP and/or Cardio for further blood pressure management Problem Qualifiers (1) Chest pain: Qualified Codes: R07.9 - Chest pain, unspecified (2) HTN (hypertension): Qualified Codes: I10 - Essential (primary) hypertension Bijan Donovan DO Apr 21, 2017 13:24
[2017-04-21 15:12] LABS: HEMOGLOBIN A1b 1.4 %; HEMOGLOBIN Ao 87.1 %; HEMOGLOBIN LA1C 1.8 %; HEMOGLOBIN P3 3.2 %
== END 2017-04-21 15:45 | disposition home or self-care (01) | DRG 282 ==
LOC: NEPC 07:12 → NEDA 09:51 → OBSVTOIN 15:48 → HCIN 16:41
PROVIDERS: ADMIT Hospitalist; ATTEND Hospitalist
PROC: 4A023N7 Measurement of Cardiac Sampling and Pressure, Left Heart, Percutaneous Approach (ICD-10-PCS; 2017-04-21)
PROC: B2111ZZ Fluoroscopy of Multiple Coronary Arteries using Low Osmolar Contrast (ICD-10-PCS; principal; 2017-04-21 08:45)
DX: I21.4 Non-ST elevation (NSTEMI) myocardial infarction (principal); I95.9 Hypotension, unspecified; I10 Essential (primary) hypertension; F17.210 Nicotine dependence, cigarettes, uncomplicated; M19.90 Unspecified osteoarthritis, unspecified site; E66.9 Obesity, unspecified; E78.5 Hyperlipidemia, unspecified; I25.10 Atherosclerotic heart disease of native coronary artery without angina pectoris; R00.1 Bradycardia, unspecified; Z82.49 Family history of ischemic heart disease and other diseases of the circulatory system
CPT/HCPCS: 71010; 71275; 80048; 80061; 80076; 82550; 82552; 83036; 83735; 83880; 84484; 85025; 85610; 85730; 93005; 93306; 93458; C1769; C1893; J1644; J2250; J3010; J7030; Q9967